=== PATIENT | male | born 1945 | race Caucasian/White ===

== ENCOUNTER 2018-11-02 11:31 | Inpatient (IN) ==
[2018-11-02] MEDS: TYLENOL PO PRN ×2 (13:03→19:16)
[2018-11-02] MEDS ORDERED: M.V.I.-12 10 ML, FOLIC ACID 1 MG, MAGNESIUM SULFATE 1 GM, THIAMINE 100 MG in NS 1,000 ML IV ONE (13:12)
[2018-11-02] MEDS ORDERED: ZOFRAN IV PRN (13:12)
--- NOTE | 2018-11-02 13:26 | EKG Report ---
Test Performed on : 11/02/2018 1:20:07 PM Test Reason : chest pain Blood Pressure : / mmHG Vent. Rate : 081 BPM Atrial Rate : 081 BPM P-R Int : 140 ms QRS Dur : 102 ms QT Int : 408 ms P-R-T Axes : 021 -27 008 degrees QTc Int : 473 ms Sinus rhythm. with premature atrial complexes. in a pattern of bigeminy. Inferior infarct (cited on or before 31-OCT-2014) Abnormal ECG When compared with ECG of 31-OCT-2014 14:26, premature ventricular complexes. are no longer present premature atrial complexes. are now present Confirmed by Kandice ECHAVARRIA, Son Vela ([id number]) on 11/04/2018 8:18:51 AM
--- NOTE | 2018-11-02 13:51 | Diag Imaging Result Doc PS360 ---
CT HEAD W/O CONTRAST - 11/02/2018 INDICATION: AMS COMPARISON: 10/31/2014 FINDINGS: The ventricles and sulci are normal in size and contour. No intracranial mass or hemorrhage. Stable mild periventricular white matter chronic microvascular disease. The skull is intact. The sinuses, mastoids, and middle ears are clear. IMPRESSION: No acute disease or change from prior. This exam was performed using automated exposure control, adjustment of mA or kV according to patient size, and/or use of iterative reconstruction technique Electronically signed by Jose Pittman 11/02/2018 1:49 PM
[2018-11-02] MEDS: LOVENOX SUBQ SCH (14:06)
[2018-11-02] MEDS: PROTONIX IV SCH (14:09)
[2018-11-02 14:27] LABS: BASO# 0.06 X1000 (0.0-0.2); BASO% 0.6 % (0.0-0.8); EOS# 0.14 X1000 (0.0-0.7); EOS% 1.3 % (0.0-10.0); HEMATOCRIT 41.2 % (42.0-52.0); HEMOGLOBIN 14.5 g/dL (14.0-18.0); IMM GRAN# 0.02 X1000 (0.0-0.04); IMM GRAN% 0.2 % (0.0-0.5); LYMPH# 2.07 X1000 (1.2-3.4); LYMPH% 19.4 % (20.5-51.1); MCH 32.4 PG (27-31); MCHC 35.2 g/dL (33-37); MONO# 0.84 X1000 (0.11-0.59); MONO% 7.9 % (1.7-9.3); MPV 10.5 FL (7.4-10.4); NEUT# 7.52 X1000 (1.4-6.5); NEUT% 70.6 % (42.2-75.2); PLT 267 X1000 (130-400); RBC 4.48 XMIL (4.7-6.1); WBC 10.65 X1000 (4.8-10.8)
[2018-11-02 14:45] LABS: AGAP 15; ALB/GLOB RATIO 1.2; ALBUMIN 3.9 g/dL (3.5-5.0); ALKALINE PHOSPHATASE 138 U/L (32-122); AMYLASE 58 U/L (20-200); BUN 16 mg/dL (8-22); CALCIUM 9.3 mg/dL (8.8-10.2); CHLORIDE 101 mmol/L (98-107); COSMO 288; CREATININE 0.7 mg/dL (0.7-1.2); ESTIMATED GFR > 60; GLUCOSE 162 mg/dL (70-104); GOT 35 U/L (10-34); GPT 17 U/L (10-44); POTASSIUM 3.8 mmol/L (3.5-5.1); SODIUM 142 mmol/L (136-145); TCO2 26 mmol/L (25-35); TOTAL PROTEIN 7.1 g/dL (6.3-8.3)
[2018-11-02] MEDS: ULTRACET 37.5MG/325MG PO SCH ×2 (15:30→21:09)
[2018-11-02] MEDS: NS 1,000 ML IV SCH (16:18)
[2018-11-02] MEDS ORDERED: LIBRIUM PO ONE (18:15)
[2018-11-02] MEDS: LIORESAL PO SCH (21:09)
[2018-11-02] MEDS: LIBRIUM PO SCH (21:11)
--- NOTE | 2018-11-02 22:26 | HISTORY AND PHYSICAL ---
CHIEF COMPLAINT: Headache, elevated blood pressure, altered mental status, frequent falling. HISTORY OF PRESENT ILLNESS: He is a 73-year-old white gentleman who recently had elevated liver function tests. He started drinking alcohol on a daily basis. Counseling was done. He was given Antabuse and 2 weeks later he could not take it. He was trying to quit on his own. He was seen about last week in my office and started on naltrexone for withdrawal symptoms. He gradually has falling and confusion and not able to walk, with elevated blood pressure. Admitted to the hospital for impending DTs. PAST MEDICAL HISTORY: 1. Type 2 diabetes. 2. Metabolic syndrome. 3. Gynecomastia. 4. Hyperlipidemia. 5. Hypertension. 6. Osteoarthritis. 7. Acid reflux disease. 8. Alcohol abuse. 9. Right-sided sciatica pain due to herniated disk between L5-S1. 10. Footdrop on the right side. PAST SURGICAL HISTORY: 1. Appendectomy. 2. Bilateral inguinal hernia repairs. 3. Left knee replacement. 4. Sleep apnea surgery. 5. Umbilical hernia repair. 6. Back surgery x3. 7. Bilateral cataract surgery. MEDICATIONS: 1. Naltrexone. 2. Losartan 50 daily. 3. Metformin 500 daily. 4. Prilosec 40 daily. 5. Flomax 0.4 daily. 6. Tramadol 50 twice a day. 7. Trazodone 50 once daily. ALLERGIES: Not known. SOCIAL HISTORY: ; 3 kids. Lives in [place]. No smoking. Drinking alcohol. Started sober for the last 1 month. FAMILY HISTORY: Father at the age of 62. Mother from MVA. Sister has dementia. HEALTH MAINTENANCE: Flu vaccine 2017. Pneumococcal vaccine 2010. Colonoscopy May [address] Dickinson. Eye exam, Dr. Zarate. Last physical September 2018. REVIEW OF SYSTEMS: HEENT: Headache and staggering gait, dizziness. No vision problem. No neck pain. Cardiopulmonary: No chest pain, shortness of breath, PND, orthopnea. GI: No nausea, vomiting, abdominal pain. : No history of hesitancy, frequency, dysuria. Musculoskeletal: No swelling of legs. No back pain. Neurologic: No obvious focal symptoms of weakness. PHYSICAL EXAMINATION: VITAL SIGNS: Temperature is 97.9 degrees, slightly tachycardic. Blood pressure is high. Height 6 feet 1 inch. Weight 215 pounds. HEENT: Atraumatic, normocephalic. Pupils equal, reactive to light. TMs are normal. Nose and throat within normal limits. NECK: Supple. No lymphadenopathy. No goiter. CHEST: Bilateral air entry. HEART: Sounds are regular. ABDOMEN: Belly is soft, nontender. Good bowel sounds. EXTREMITIES: No peripheral edema or cyanosis. NEUROLOGIC: No obvious neurological deficits. INVESTIGATIONS: CBC: White cell count 10, hematocrit 41, platelets 267,000. Sodium 142, potassium 3.8, chloride 101, BUN 16, creatinine 0.7, glucose 162. Liver function tests were normal. Cardiac enzymes were negative. ProBNP 507. Amylase was normal. EKG normal sinus, nothing acute, Q's in the inferior leads. CT head no acute disease from the prior. ASSESSMENT AND PLAN: 1. A 73-year-old white male who came into the hospital with delirium tremens due to withdrawal from alcohol. Plan of care is a banana bag, thiamine, folic acid. 2. Deep venous thrombosis and gastrointestinal prophylaxis as per order sheet. 3. Slowly reconcile home medicines. 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 5. Gentle hydration. 6. Discussed with the family. cc: Maury Garcia MD
[2018-11-03] MEDS: TYLENOL PO PRN (03:51)
[2018-11-03] MEDS: NS 1,000 ML IV SCH (03:52)
[2018-11-03] MEDS ORDERED: COZAAR PO SCH (09:00)
[2018-11-03] MEDS: FLOMAX PO SCH (10:12)
[2018-11-03] MEDS: LIBRIUM PO SCH ×2 (10:12→21:43)
[2018-11-03] MEDS: SINGULAIR PO SCH (10:12)
[2018-11-03] MEDS: GLUCOPHAGE PO SCH (10:12)
[2018-11-03] MEDS: LIORESAL PO SCH ×2 (10:13→21:43)
[2018-11-03] MEDS: ULTRACET 37.5MG/325MG PO SCH ×3 (10:13→18:39)
[2018-11-03] MEDS: LOVENOX SUBQ SCH (12:53)
[2018-11-03] MEDS: SODIUM CHLORIDE 0.9% INJ SCH (12:54)
[2018-11-03] MEDS: PROTONIX IV SCH (12:54)
[2018-11-03] MEDS: LOPRESSOR PO SCH ×2 (12:55→21:43)
--- NOTE | 2018-11-03 14:00 | PROGRESS NOTE ---
DATE: 11/03/2018 SUBJECTIVE: The patient still has a little bit of a headache but it is improved since last night. I sat and talked with him about his headaches. Apparently these are much different than anything he has had before. He has been having them over the last 2 weeks or so. He has had falls and what he describes with his falls sounds like benign postural vertigo. The whole room spins for him and sometimes he lays on the floor and grabs hold of the floor because he is spinning so much. He has been an everyday drinker but has not had a drink in about 6 weeks. When he was put into the hospital, it was felt that he might have some impending DTs or current DTs. He does not show any signs of that at this time. He has only been on Ativan 5 mg p.o. b.i.d. He says he has never had DTs. My history from him sounds a little different than what Dr. Garcia got and sometimes histories can change he did note that at one time, his blood pressure he was told went up to 230 systolic. This could be from his vertigo but since this is a brand new type of headache, I think one still has to consider the possibility of intracranial aneurysm. His CT scan of the head without contrast was essentially normal but that can miss a cerebral aneurysm. He does not show any signs right now of neck pain or bleeding in his brain but certainly, has an unusual headache, whether it is from alcohol withdrawal or migraine that was all over his head or whether he could have a cerebral aneurysm. I do not know but he says he has never had anything quite like this before. OBJECTIVE: Vital signs: Blood pressure is 167/94, respirations 18, pulse 79, temperature 98.1 degrees. HEENT: He is normocephalic. EOMS intact. PERRLA. Throat clear. Lungs: Clear to auscultation and percussion without rhonchi, rales, rales or wheezes. Heart: Regular rate and rhythm without murmurs, gallops, friction rubs. Abdomen: Soft. Active bowel sounds. No organomegaly or tenderness. Neurological: Intact grossly except from his history where he has severe headache and he says though he has had hypertension and takes medication for, it has never been this high before. ASSESSMENT: 1. Headaches. 2. Falls. 3. Vertigo. 4. Possible delirium tremens. PLAN: We will get Neurology to see him. I will go ahead since he has good kidney function and get an MRA and MRI of his head with contrast. cc: MD Maury Carbone Jr, MD
[2018-11-03] MEDS: FOLIC ACID 5 MG in NS 50 ML IV SCH (18:39)
[2018-11-04] MEDS: NS 1,000 ML IV SCH ×3 (02:44→22:04)
[2018-11-04] MEDS: LIORESAL PO SCH ×2 (10:00→22:08)
[2018-11-04] MEDS: LOPRESSOR PO SCH ×2 (10:00→22:07)
[2018-11-04] MEDS: LIBRIUM PO SCH ×2 (10:00→22:08)
[2018-11-04] MEDS: SINGULAIR PO SCH (10:00)
[2018-11-04] MEDS: FOLIC ACID 5 MG in NS 50 ML IV SCH (10:00)
[2018-11-04] MEDS: GLUCOPHAGE PO SCH (10:00)
[2018-11-04] MEDS: FLOMAX PO SCH (10:00)
[2018-11-04] MEDS: ULTRACET 37.5MG/325MG PO SCH ×3 (10:00→19:02)
[2018-11-04] MEDS: AVAPRO PO SCH (11:20)
--- NOTE | 2018-11-04 12:14 | PROGRESS NOTE ---
DATE: 11/04/2018 SUBJECTIVE: The patient says his headache finally went away a few hours ago. He has had it for over a week. His blood pressure is still somewhat elevated but not as high as it had been. He does tell me a story about having falls that will just suddenly happened. He had one fall one time though and did check his blood pressure. It was 70 systolic so this could be cardiovascular in nature. He says usually his blood pressures are normal and are never over 150 but the other day, he had one that was 231 systolic. There was some concern about DTs but at this point, I do not see any evidence of DTs. His headache was all over his head and different than any other headache he has had previously. OBJECTIVE: Blood pressure is 170/79, respirations 20, pulse 53, temperature 97.8 degrees Fahrenheit, oxygen saturation is 98% on room air. HEENT: Normocephalic. EOMs intact. PERRLA. Throat clear. Lungs: Clear to auscultation and percussion without rhonchi, rales, or wheezes. Heart: Regular rate and rhythm without murmurs, gallops, or friction rubs. Abdomen: Soft. Active bowel sounds. No organomegaly or tenderness. Neurological: Examination is intact grossly. He is appropriate, has not had any hallucinations, does not look tremulous at all. Apparently, he had tried naltrexone and wondered if that might have caused some of his headache. He is not on it at this point. I do think that Dr. Garcia was concerned about alcoholism as he had some elevated liver function tests and thought he might be going into DTs. I do not see DTs at this point. He has been on a low dose of Librium. ASSESSMENT: 1. Headache. 2. Hypertension. 3. Question about alcoholism. 4. Falls. 5. Diabetes. PLAN: I have discussed the case with Dr. Pelletier. Dr. Pelletier is going to see him tomorrow. I have ordered an MRI and MRA of his head. I want to make sure there is no aneurysm or that there are no tumors. With his falls, that needs to be evaluated. He possibly has intermittent hypotension but right now, he is hypertensive. I will go ahead with plans. I will go ahead and stop his losartan and change him to Avapro which is stronger at 300 mg daily, try to get his blood pressure down a little bit more. His Lopressor now is 50 mg p.o. b.i.d. His pulse rates are in the 50s so I do not want to increase that particular medicine any further. We will have to be careful with his blood pressure, especially if he is having some spells of hypotension at different times. cc: MD Maury Carbone Jr, MD
[2018-11-04] MEDS: PROTONIX IV SCH (14:08)
[2018-11-04] MEDS: SODIUM CHLORIDE 0.9% INJ SCH (14:09)
[2018-11-04] MEDS: LOVENOX SUBQ SCH (14:09)
[2018-11-05] MEDS ORDERED: NORVASC PO ONE (00:30)
[2018-11-05] MEDS: NS 1,000 ML IV SCH ×3 (04:59→19:45)
--- NOTE | 2018-11-05 08:36 | CONSULTATION ---
DATE OF CONSULTATION: 11/05/2018 HISTORY OF PRESENT ILLNESS: Mr. Whittington is 73 years old, and Neurology is consulted because of his intense headache over the weekend. He reports headache was present constantly for about 1 week and finally improved in the last 24 to 36 hours. Headache had been global, squeezing and pressure with some nausea and retching, but no vomiting. He had some blurred vision but not diplopia or focal loss of vision. There was no associated altered consciousness, altered awareness, focal neurologic deficit, neck stiffness. There is no history of recent head injury. He has never had a diagnosed stroke or other neurologic event. Prior to current 1 week headache, headaches would be of similar or identical character and distribution, a few times per week, lasting part of a day, controlled dependably with a dose of ibuprofen. He estimates prior headaches averaged a few times per week. He does not recall having blood pressure checked during headache before this admission. He has had some episodes of collapse. He reports 2 episodes occurring during 1 day about 7 or 8 years ago. He reports that day he had felt hot or flushed while riding in the car. When he stood, he fell. He believes he lost consciousness briefly. He got up without assistance, took a few steps and fell again, apparently unconscious again, striking his head. Ambulance was summoned. He reports being told systolic blood pressure was 70. He had some workup then and reports no significant findings. He had 2 spells a few years ago. He had a spell the week before last and a spell last week. The spell last week was the first time he ever had an episode associated with headache. Each of these occurred without warning, without lightheadedness, without presyncopal symptoms. The period of altered awareness or altered consciousness was extremely brief, only a second or so each time. He was immediately oriented, alert, apparently neurologically intact and quickly able to get up without assistance each time. Witnesses did not report rigidity, limb jerking or other seizure like feature. When he hit his head 7 or 8 years ago, he lost bowel and bladder control. Otherwise, there has been no incontinence. There has been no tongue or lip biting with these episodes. PAST MEDICAL AND SURGICAL HISTORY/MEDICATIONS: He reports diagnoses of hypertension and diabetes mellitus approximately 10 years ago. He reports taking his medications regularly. He has chronic back pain and a history of several back surgeries. He reports taking tramadol and baclofen regularly without missing doses recently. For headache, he has used ibuprofen with benefit as above. SOCIAL HISTORY: He stopped using ethanol about 6 weeks ago. He stopped caffeine about 6 months ago. He does not smoke cigarettes. DIAGNOSTIC DATA/VITAL SIGNS: Workup here includes noncontrast CT of the head on admission 3 days ago showing nothing remarkable, no evidence of bleeding. Brain MRI and MRA are ordered. Computer record shows 04/15/2013 carotid ultrasound was unremarkable. Vital sign record shows systolic blood pressures ranging 130s to 200s this admission. He reports prior blood pressures have not been elevated, but he has not had a blood pressure checked at the time of headache by his recollection. Heart rate has ranged 50s to 80s. He has been afebrile this admission. Lab shows blood sugar 162, AST 35, alkaline phosphatase 138. PHYSICAL EXAMINATION: On exam, Mr. Whittington is awake, alert, attentive, appropriate, cheerful, talkative. He is completely oriented. Speech is not dysarthric. Language function is intact. Memory of remote events is good. Head and neck are unremarkable. There is no meningismus. Hands and feet are warm. He has full visual red tested by confrontational finger counting. Extraocular movements are full. Facial motility is symmetric. Gag is intact. Tongue is midline. Hearing is fair. He splints the right shoulder more than the left, but has good shoulder shrug bilaterally. He guards some vigorous limb movement, reporting increased back pain, but with repositioning is able to show normal power throughout. Limb tone is symmetric. He did well on [id number] testing bilaterally. He has slight difficulty with [id number]-[id number] testing bilaterally. I did not test his gait. He has a stocking pattern of sensory loss to pinprick and light touch symmetrically extending to mid pedroza bilaterally. Proprioception is good at the great toe MTP joint bilaterally. Reflexes are absent at the ankles, trace at the knees, 1+ symmetrically at the wrists. IMPRESSION AND PLAN: 1. Recent global headache. This was associated with significant blood pressure elevation, which he reports has not been a problem in the past. Other possible explanations include caffeine withdrawal, and he may have a baseline tendency to headache such as migraine. This headache may have been multifactorial. Report that his headache is improved today is encouraging, although blood pressure continues elevated. I do not have any urgent suggestion for headache management right now. If headache returns and persists with blood pressure controlled, we can consider more specific headache management. I will be glad to see him inpatient or outpatient for that. 2. Several episodes of collapse over a period of several years. He has had workup in the past. These episodes do not sound like seizure or other primary central nervous system event. 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 3. He has had some unsteady gait. This may be multifactorial. He has slight lower limb ataxia while supine. He reports back pain is the chief problem with his gait. If the brain MRI does not show evidence of cerebellar or brainstem problem, we might consider elective workup with nerve conduction study. 4. He has clinical evidence of peripheral neuropathy, presumed diabetic neuropathy. I do not know the extent of his prior ethanol use, and ethanol-related neuropathy might also be a consideration. 5. There is family history that sister has had episodes of collapse with extensive workup all negative over the years, by his report. No urgent suggestions now. Thanks for asking Neurology to see Mr. Whittington. cc: MD Maury Odell III, MD MTDD
--- NOTE | 2018-11-05 09:12 | Diag Imaging Result Doc PS360 ---
EXAM: MRI BRAIN W/CONTRAST INDICATION: headache COMPARISON: CT head dated 11/02/2018. No prior MRI brain is available for comparison. FINDINGS: There is no evidence of acute infarct. There is a chronic lacunar infarct involving the caudate on the right. There is fairly mild T2/FLAIR hyperintensity in the periventricular and subcortical white matter suggesting microangiopathy. There is no discrete intracranial mass, mass effect, or intracranial hemorrhage. There is no evidence of abnormal intracranial enhancement. The surrounding soft tissues and bony structures are essentially unremarkable. IMPRESSION: Fairly mild white matter microangiopathy and a chronic lacunar infarct involving the right caudate. No evidence of acute pathology. Electronically signed by Dwaine Pepe 11/05/2018 9:10 AM
--- NOTE | 2018-11-05 09:20 | Diag Imaging Result Doc PS360 ---
EXAM: MRA BRAIN W/CONTRAST INDICATION: headache TECHNIQUE: Axial 3-D [id number] images and 3-D MIPS were obtained. COMPARISON: None. FINDINGS: The distal ICAs and the basilar artery are patent. There is no evidence of flow-limiting stenosis, vascular malformation, or cerebral aneurysm involving the arteries comprising the ho[place] of [place] including the anterior, middle, and posterior cerebral arteries. IMPRESSION: Unremarkable MRA brain with no evidence of flow-limiting stenosis. Electronically signed by Dwaine Pepe 11/05/2018 9:18 AM
[2018-11-05] MEDS: SINGULAIR PO SCH (10:02)
[2018-11-05] MEDS: AVAPRO PO SCH (10:02)
[2018-11-05] MEDS: ULTRACET 37.5MG/325MG PO SCH ×3 (10:02→17:32)
[2018-11-05] MEDS: LIBRIUM PO SCH ×2 (10:02→20:53)
[2018-11-05] MEDS: LIORESAL PO SCH ×2 (10:02→20:53)
[2018-11-05] MEDS: FOLIC ACID 5 MG in NS 50 ML IV SCH (10:03)
[2018-11-05] MEDS: GLUCOPHAGE PO SCH (10:03)
[2018-11-05] MEDS: LOPRESSOR PO SCH ×2 (10:03→20:53)
[2018-11-05] MEDS: FLOMAX PO SCH (10:03)
[2018-11-05] MEDS: LOVENOX SUBQ SCH (13:39)
[2018-11-05] MEDS ORDERED: PROTONIX PO SCH (16:00)
--- NOTE | 2018-11-06 06:54 | PROGRESS NOTE ---
DATE: 11/05/2018 SUBJECTIVE: Appreciate Dr. Pelletier's consult. Events noted. Complains of headache. Dr. Pierre requested to see Dr. Pelletier about this imbalance. MRI, MRA was done and he seems to be better. Blood pressure is slowly coming down. PHYSICAL EXAMINATION: Temperature is 98.7 degrees, pulse is 89, blood pressure is 176/81.HEENT: Atraumatic, normocephalic. Pupils equal, reactive to light. Neck: Supple. No lymphadenopathy. Chest: Bilateral air entry. Heart: Sounds are regular. Belly is soft, nontender. Good bowel sounds. No neurological deficits. INVESTIGATIONS: White cell count 10.6, hematocrit 41, platelets 267,000. SMA-7 is normal, glucose 162. ProBNP 507. Cardiac enzymes are negative. Ammonia 44. ASSESSMENT AND PLAN: 1. Altered mental status, dizziness, probably due to delirium tremens. 2. Continue on Librium and also will start on naltrexone. The patient was given thiamine, folic acid. 3. Blood pressure, taking Avapro 300 daily, metoprolol 50 p.o. b.i.d. 4. Type 2 diabetes, on metformin 50 in the morning. 5. Benign prostatic hypertrophy on Flomax. 6. Discontinue IV fluids. DVT, GI prophylaxis as per order sheet. Follow up on the MRI and MRA and results discussed with the patient. I appreciate Dr. Pelletier's consult. LEVEL OF DOCUMENTATION: 25 minutes. cc: Maury Garcia MD
[2018-11-06 08:04] VITALS: BP 150/82
[2018-11-06] MEDS ORDERED: PREVNAR 13 IM ONE (08:45)
[2018-11-06] MEDS ORDERED: REVIA PO SCH (09:00)
[2018-11-06] MEDS: FOLIC ACID 5 MG in NS 50 ML IV SCH (09:16)
[2018-11-06] MEDS: ULTRACET 37.5MG/325MG PO SCH (09:17)
[2018-11-06] MEDS: LIBRIUM PO SCH (09:17)
[2018-11-06] MEDS: SINGULAIR PO SCH (09:17)
[2018-11-06] MEDS: FLOMAX PO SCH (09:17)
[2018-11-06] MEDS: AVAPRO PO SCH (09:17)
[2018-11-06] MEDS: LIORESAL PO SCH (09:17)
[2018-11-06] MEDS: GLUCOPHAGE PO SCH (09:17)
[2018-11-06] MEDS: LOPRESSOR PO SCH (09:18)
--- NOTE | 2018-11-08 23:09 | DISCHARGE SUMMARY ---
ADMISSION DATE: 11/02/2018 DISCHARGE DATE: 11/06/2018 DISCHARGING DIAGNOSES: 1. Altered mental status.Headache. Dizziness due to delirium tremens. SECONDARY DIAGNOSIS: 1. Alcoholic hepatitis. 2. Type 2 diabetes. 3. Metabolic syndrome. 4. Hyperlipidemia. 5. Hypertension. 6. Acid reflux disease. 7. Osteoarthritis. 8. Intermittent alcohol abuse, at risk drinking. 9. Footdrop on the right side due to right-sided sciatica pain. 10. Herniated disk at L5-S1 status post surgery. 11. Sleep apnea. CONSULTS: Dr. Pelletier. RADIOLOGY PROCEDURES: 1. CT head, no acute disease. 2. MRI of the brain, white matter microangiopathy, chronic lacunar infarct involving the right caudate nucleus. 3. MRA of the brain, no evidence of flow-limiting stenosis. BRIEF HISTORY: Please see the H and P that was done. In brief, he is a 73-year-old white male was counseled with new finding of elevated liver function tests. The patient was drinking surreptitiously with alcohol. He has tried to stop drinking. Started on Antabuse, he was not able to take it. Subsequently, changed to naltrexone. During this time, he started having this headache, losing balance, tremor. Blood pressure was running high. Basically, admitted to the hospital for DTs. Further workup, CT, MRI/MRA findings were unrevealing. He was given Librium and naltrexone and the patient slowly came back to the baseline. Patient was given banana bag, thiamine, folic acid. The patient was discharged home in a stable condition. I appreciated Dr. Pelletier's consult. LABS: CBC: White cell count 10, hematocrit 41, platelets 267,000. Sodium 142, potassium 3.8, chloride 100, BUN 16, creatinine 0.7. Glucose 162, AST, ALT normal. Ammonia 44. CK 103, proBNP, troponin were normal. Amylase was normal. DISCHARGE INSTRUCTIONS: 1. Continue to abstain from drinking. Continue on naltrexone 50 mg in the evening. 2. Prilosec 40 in the morning, metformin 500 in the morning, Flomax 0.4 daily, losartan 50 mg in the morning, Ultracet 1 tablet t.i.d. for pain, baclofen 10 p.o. b.i.d., Singulair 10 daily, Icar C Plus 1 tablet daily, Coreg 12.5 p.o. b.i.d., thiamin 100 mg daily, losartan 50 p.o. b.i.d. 3. Follow up in my office in 10 days. cc: MD Deepthi Ayala III, MD MTDD
== END 2018-11-06 10:52 | disposition home or self-care (01) | DRG 897 ==
LOC: EDSEX 11:31 → DIRADM 11:31 → 4N 12:18
PROVIDERS: ADMIT Internal Medicine; ATTEND Internal Medicine